=== PATIENT | male | born 1975 | race American Indian/Alaskan Native ===

== ENCOUNTER 2020-06-02 09:37 | Emergency (ER) | payer SELFPAY ==
[2020-06-02 09:43] VITALS: BP 157/101
[2020-06-02 11:07] LABS: Basophils % (Auto) 1.1 % (0.0-1.8); Eosinophils # (Auto) 0.2 K/mm3 (0.0-0.4); Eosinophils % (Auto) 3.5 % (0.0-4.3); Hemoglobin 14.9 gm/dl (11.8-15.2); Lymphocytes # (Auto) 2.5 K/mm3 (1.2-5.4); Lymphocytes % (Auto) 34.8 % (13.4-35.0); Mean Corpuscular HGB Conc 34 % (32-34); Mean Corpuscular Volume 87 fl (84-94); Monocytes # (Auto) 0.6 K/mm3 (0.0-0.8); Monocytes % (Auto) 7.8 % (0.0-7.3); Platelet Count 203 K/mm3 (140-440); Red Blood Count 5.03 M/mm3 (3.65-5.03); Red Cell Distribution Width 13.3 % (13.2-15.2)
[2020-06-02 11:18] LABS: Basophils # (Auto) 0.1 K/mm3 (0.0-0.1)
[2020-06-02 11:34] LABS: Alanine Aminotransferase 45 units/L (7-56); BUN/Creatinine Ratio 10; Blood Urea Nitrogen 10 mg/dL (9-20); Calcium 9.4 mg/dL (8.4-10.2); Hemolysis Index 7
--- NOTE | 2020-06-02 15:04 | Emergency Department Report ---
ED Abdominal Pain HPI - General Chief Complaint: Abdominal Pain Stated Complaint: BACK AND ABD PAIN Time Seen by Provider: 06/02/20 13:39 Source: patient Mode of arrival: Ambulatory Limitations: No Limitations - History of Present Illness Initial Comments: 44-year-old [place] male resents emerged department complaining of a few day history of left flank pain associated with increased urinary urgency and burning sensation radiating from the left flank down to the suprapubic region. Reports having some scant hematuria as well reports no penile discharge. No diarrhea no constipation no nausea or vomiting. MD Complaint: abdominal pain, flank pain -: Gradual Location: L flank Radiation: suprapubic, L flank Severity: mild Quality: burning Consistency: constant Improves With: nothing Worsens With: nothing Associated Symptoms: dysuria, hematuria. denies: nausea, vomiting, constipation, hematemesis, hematochezia, anorexia, syncope - Related Data Home Medications Medication Instructions Recorded Confirmed Last Taken Lisinopril [Zestril] 40 mg PO DAILY 01/31/14 01/31/14 01/30/14 19:00 Previous Rx's Medication Instructions Recorded Last Taken Type HYDROcodone/APAP 7.5-325 [[place] 1 each PO Q6HR PRN #14 tablet 04/01/14 Unknown Rx 7.5/325 mg] Ondansetron [Zofran Odt] 4 mg PO Q4H PRN #10 tab.rapdis 04/01/14 Unknown Rx cephALEXin [Keflex] 500 mg PO Q6H #20 capsule 04/01/14 Unknown Rx HYDROcodone/ACETAMINOPHEN [[place] 1 each PO Q4H PRN #20 tablet 04/03/14 Unknown Rx 5/325 Tablet] Oxycodone HCl/Acetaminophen 1 each PO Q6HR PRN #20 tablet 04/12/14 Unknown Rx [Percocet 10-325 mg] levoFLOXacin [Levaquin] 750 mg PO QDAY #10 tablet 04/12/14 Unknown Rx 0.9 % Sodium Chloride [Normal 10 ml IJ BID #250 disp.syrin 04/16/14 Unknown Rx Saline Flush] Insulin Glargine,Hum.rec.anlog 100 unit SQ Q12H PRN #3 ml 03/12/20 Unknown Rx [Basaglar Kwikpen U-100] Sulfamethoxazole/Trimethoprim 1 each PO BID #20 tablet 03/12/20 Unknown Rx [Bactrim DS TAB] lisinopriL [Zestril TAB] 40 mg PO QDAY #30 tablet 03/12/20 Unknown Rx metFORMIN [Glucophage] 1,000 mg PO Q12H #60 03/12/20 Unknown Rx Phenazopyridine [Pyridium] 200 mg PO TID #9 tab 06/02/20 Unknown Rx Sulfamethoxazole/Trimethoprim 1 each PO BID #20 tablet 06/02/20 Unknown Rx [Bactrim DS TAB] Allergies Allergy/AdvReac Type Severity Reaction Status Date / Time amoxicillin [Amoxicillin] Allergy Hives Verified 01/31/14 05:13 ED Review of Systems ROS: Stated complaint: BACK AND ABD PAIN Other details as noted in HPI Comment: All other systems reviewed and negative ED Past Medical Hx - Past Medical History Previous Medical History?: Yes Hx Hypertension: Yes Hx Heart Attack/AMI: No Hx Congestive Heart Failure: No Hx Diabetes: Yes Hx Deep Vein Thrombosis: No Hx Pulmonary Embolism: No Hx GERD: Yes Hx Liver Disease: No Hx Renal Disease: No Hx Sickle Cell Disease: No Hx Arthritis: No Hx Headaches / Migraines: No Hx Seizures: No Hx Kidney Stones: No Hx Asthma: No Hx COPD: No Hx Tuberculosis: No Hx Dementia: No Hx HIV: No Additional medical history: hiatal hernia - Surgical History Past Surgical History?: Yes Hx Coronary Stent: No Hx Open Heart Surgery: No Hx Pacemaker: No Hx Internal Defibrillator: No Hx Cholecystectomy: Yes (04/02/2014) Hx Appendectomy: No Hx Breast Surgery: (N/A) - Social History Smoking Status: Never Smoker Substance Use Type: None - Medications Home Medications: Home Medications Medication Instructions Recorded Confirmed Last Taken Type Lisinopril [Zestril] 40 mg PO DAILY 01/31/14 01/31/14 01/30/14 19:00 History HYDROcodone/APAP 7.5-325 [[place] 1 each PO Q6HR PRN #14 tablet 04/01/14 Unknown Rx 7.5/325 mg] Ondansetron [Zofran Odt] 4 mg PO Q4H PRN #10 tab.rapdis 04/01/14 Unknown Rx cephALEXin [Keflex] 500 mg PO Q6H #20 capsule 04/01/14 Unknown Rx HYDROcodone/ACETAMINOPHEN [[place] 1 each PO Q4H PRN #20 tablet 04/03/14 Unknown Rx 5/325 Tablet] Oxycodone HCl/Acetaminophen 1 each PO Q6HR PRN #20 tablet 04/12/14 Unknown Rx [Percocet 10-325 mg] levoFLOXacin [Levaquin] 750 mg PO QDAY #10 tablet 04/12/14 Unknown Rx 0.9 % Sodium Chloride [Normal 10 ml IJ BID #250 disp.syrin 04/16/14 Unknown Rx Saline Flush] Insulin Glargine,Hum.rec.anlog 100 unit SQ Q12H PRN #3 ml 03/12/20 Unknown Rx [Basaglar Kwikpen U-100] Sulfamethoxazole/Trimethoprim 1 each PO BID #20 tablet 03/12/20 Unknown Rx [Bactrim DS TAB] lisinopriL [Zestril TAB] 40 mg PO QDAY #30 tablet 03/12/20 Unknown Rx metFORMIN [Glucophage] 1,000 mg PO Q12H #60 03/12/20 Unknown Rx Phenazopyridine [Pyridium] 200 mg PO TID #9 tab 06/02/20 Unknown Rx Sulfamethoxazole/Trimethoprim 1 each PO BID #20 tablet 06/02/20 Unknown Rx [Bactrim DS TAB] ED Physical Exam - General Limitations: No Limitations General appearance: alert, in no apparent distress - Head Head exam: Present: atraumatic, normocephalic - Eye Eye exam: Present: normal appearance, PERRL, EOMI Pupils: Present: normal accommodation - ENT ENT exam: Present: normal exam, mucous membranes moist - Neck Neck exam: Present: normal inspection, full ROM. Absent: tenderness, meningismus, lymphadenopathy - Respiratory Respiratory exam: Present: normal lung sounds bilaterally. Absent: respiratory distress, wheezes, rales, chest wall tenderness, accessory muscle use, decreased breath sounds - Cardiovascular Cardiovascular Exam: Present: regular rate, normal rhythm. Absent: systolic murmur, diastolic murmur, rubs, gallop - GI/Abdominal GI/Abdominal exam: Present: soft, normal bowel sounds. Absent: distended, tenderness, hyperactive bowel sounds, hypoactive bowel sounds, organomegaly, mass - Rectal Rectal exam: Present: deferred - Extremities Exam Extremities exam: Present: normal inspection, full ROM, normal capillary refill - Back Exam Back exam: Present: normal inspection - Neurological Exam Neurological exam: Present: alert, oriented X3, CN II-XII intact - Psychiatric Psychiatric exam: Present: normal affect, normal mood - Skin Skin exam: Present: warm, dry, intact, normal color. Absent: rash ED Course Vital Signs 06/02/20 09:41 Temperature 98.5 F Pulse Rate 89 Respiratory 16 Rate Blood Pressure 157/101 O2 Sat by Pulse 98 Oximetry ED Medical Decision Making - Lab Data Result diagrams: 06/02/20 10:32 06/02/20 10:32 Lab Results 06/02/20 06/02/20 06/02/20 Range/Units 10:32 10:32 13:48 WBC 7.1 (4.5-11.0) K/mm3 RBC 5.03 (3.65-5.03) M/mm3 Hgb 14.9 (11.8-15.2) gm/dl Hct 44.0 (35.5-45.6) % MCV 87 (84-94) fl MCH 30 (28-32) pg MCHC 34 (32-34) % RDW 13.3 (13.2-15.2) % Plt Count 203 (140-440) K/mm3 Lymph % (Auto) 34.8 (13.4-35.0) % [place] % (Auto) 7.8 H (0.0-7.3) % Eos % (Auto) 3.5 (0.0-4.3) % Baso % (Auto) 1.1 (0.0-1.8) % Lymph # 2.5 (1.2-5.4) K/mm3 [place] # 0.6 (0.0-0.8) K/mm3 Eos # 0.2 (0.0-0.4) K/mm3 Baso # 0.1 (0.0-0.1) K/mm3 Seg Neutrophils % 52.8 (40.0-70.0) % Seg Neutrophils # 3.7 (1.8-7.7) K/mm3 Sodium 141 (137-145) mmol/L Potassium 4.6 (3.6-5.0) mmol/L Chloride 103.6 (98-107) mmol/L Carbon Dioxide 24 (22-30) mmol/L Anion Gap 18 mmol/L BUN 10 (9-20) mg/dL Creatinine 1.0 (0.8-1.3) mg/dL Estimated GFR > 60 ml/min BUN/Creatinine Ratio 10 % Glucose 194 H (75-100) mg/dL Calcium 9.4 (8.4-10.2) mg/dL Total Bilirubin 0.30 (0.1-1.2) mg/dL AST 37 (5-40) units/L ALT 45 (7-56) units/L Alkaline Phosphatase 68 (35-129) units/L Total Protein 7.1 (6.3-8.2) g/dL Albumin 4.0 (3.9-5) g/dL Albumin/Globulin Ratio 1.3 % Urine Color Yellow (Yellow) Urine Turbidity Clear (Clear) Urine pH 5.0 (5.0-7.0) Ur Specific [place] 1.024 (1.003-1.030) Urine Protein <15 mg/dl (Negative) mg/dL Urine Glucose (UA) 150 (Negative) mg/dL Urine Ketones Neg (Negative) mg/dL Urine Blood Neg (Negative) Urine Nitrite Neg (Negative) Urine Bilirubin Neg (Negative) Urine Urobilinogen < 2.0 (<2.0) mg/dL Ur Leukocyte Esterase Tr (Negative) Urine WBC (Auto) 3.0 (0.0-6.0) /HPF Urine RBC (Auto) 6.0 (0.0-6.0) /HPF U Epithel Cells (Auto) 3.0 (0-13.0) /HPF Urine Mucus Few /HPF - Medical Decision Making This patient presents to the emergency department with symptoms consistent with acute urinary tract infection. No systemic symptoms. Not septic. She is well- appearing. Moderate suspicion for acute pyelonephritis given the lack of fever, CVA tenderness, or systemic features. Low suspicion for for kidney stone or infected stone. Not in age range for and her history and and presentation are complicated. No no indications for imaging at this time. This patient presents with abdominal pain of unclear etiology. This patient presents with abdominal pain of unclear etiology. Their evaluation has not identified a emergent etiology for the abdominal pain. Specifically, given the very benign exam, normal laboratory studies, and lack of significant risk factors, I have a very low suspicion for appendicitis, ischemic bowel, bowel perforation, or any other life threatening disease. I have discussed with the patient the level of uncertainty with undifferentiated abdominal pain and clearly explained the need to follow-up as noted on the discharge instructions, or return to the Emergency Department immediately if the pain worsens, develops fever, persistent and u ncontrollable vomiting, or for any new symptoms or concerns. I discussed with the patient that this presentation today for abdominal pain could represent a significant risk for an acute abdominal process. Although the tests in the ED were essentially normal, there is still a possibility of a process such as appendicitis, diverticulitis, cholecystitis, ulcer, early bowel obstruction, mesenteric ischemia, kidney stone, or even kidney infection which could subsequently cause disability or . The patient understands that they must return within 24 hours for a recheck or see their physician within 24 hours for re-exam due to the possibility of significant surgical or medical process. Critical care attestation.: If time is entered above; I have spent that time in minutes in the direct care of this critically ill patient, excluding procedure time. ED Disposition Clinical Impression: UTI (urinary tract infection) Disposition: DC-01 TO HOME OR SELFCARE Is pt being admited?: No Does the pt Need Aspirin: No Condition: Stable Instructions: Urinary Tract Infection in Men (ED), Dysuria (ED), Phe nazopyridine (By mouth), Acute Pyelonephritis (ED) Prescriptions: Sulfamethoxazole/Trimethoprim [Bactrim DS TAB] 1 each PO BID #20 tablet Phenazopyridine [Pyridium] 200 mg PO TID #9 tab Referrals: PRIMARY CAREMD [Primary Care Provider] - 3-5 Days NARINDER LYON MD [Staff Physician] - 3-5 Days
[2020-06-02 15:19] LABS: Bilirubin,Urine NEG (Negative); Blood,Urine NEG (Negative); Color,Urine Yellow (Yellow); Mucus,Urine FEW /HPF; Protein,Urine <15 mg/dL mg/dL (Negative); Urobilinogen,Urine < 2.0 mg/dL (<2.0)
== END 2020-06-02 15:44 | disposition home or self-care (01) ==
LOC: ED 09:37
DX: N39.0 Urinary tract infection, site not specified (principal); I10 Essential (primary) hypertension; E11.9 Type 2 diabetes mellitus without complications; K21.9 Gastro-esophageal reflux disease without esophagitis; Z88.0 Allergy status to penicillin; Z79.899 Other long term (current) drug therapy; Z90.49 Acquired absence of other specified parts of digestive tract
CPT/HCPCS: 36415; 80053; 81001; 85025; 99283

== ENCOUNTER 2021-12-05 11:23 | Emergency (ER) | payer OTHER ==
[2021-12-05] MEDS ORDERED: MORPHINE 4 MG/1 ML INJ IV ONE (12:22)
[2021-12-05] MEDS ORDERED: SODIUM CHLORIDE 0.9% 1000 ML 1,000 ML IV ONE (12:22)
[2021-12-05] MEDS ORDERED: ONDANSETRON 4 MG/2 ML INJ IV ONE (12:22)
--- NOTE | 2021-12-05 12:24 | Event Note ---
ED Screening Note Date of service: 12/05/21 Time: 12:23 ED Screening Note: Patient presents to the ER today with complaints of severe left lower quadrant pain. Onset last . Reports associated vomiting. Last bowel movement was 2 days ago. Reports decreased appetite. Patient admits that he has been to the ER 4 times in the past 3 days for similar symptoms. He has been evaluated with labs and CT scan but he was told that they can find anything. He was given referral to GI but he states that his insurance only recently got and stated today. Abdominal surgeries significant only for cholecystectomy. Past medical history significant for hypertension, hyperlipidemia, diabetes, GERD and vertigo. This initial assessment/diagnostic orders/clinical plan/treatment(s) is/are subject to change based on patients health status, clinical progression and re- assessment by fellow clinical providers in the ED. Further treatment and workup at subsequent clinical providers discretion. Patient/guardian urged not to elope from the ED as their condition may be serious if not clinically assessed and managed. Initial orders include: Abdominal pain order set
--- NOTE | 2021-12-05 12:54 | Emergency Department Report ---
ED Abdominal Pain HPI - General Chief Complaint: Abdominal Pain Stated Complaint: ABDOMINAL PAIN/VOMITING Time Seen by Provider: 12/05/21 12:26 Source: patient Mode of arrival: Ambulatory Limitations: No Limitations - History of Present Illness Initial Comments: Patient presents with generalized abdominal pain. This is been intermittent for over a month now. Sometimes it is left-sided. Sometimes it is right-sided. When he lies on his right side, the pain starts to hurt on the right side. Predominantly, the pain is left-sided. Pain seems to wax and wane. It does not radiate, but does migrate as previously noted. There is no trauma associated with this. He has had no fevers or chills. There is no dysuria or frequency. Has not had hematuria. Patient denies penile discharge. He has been seen here multiple times. Blood work and CTs have been obtained. Patient has not had any specific diagnosis. Regardless, he keeps having symptoms. He has not followed up with a primary care physician. - Related Data Previous Rx's Medication Instructions Recorded Last Taken Type Insulin Glargine,Hum.rec.anlog 100 unit SQ Q12H PRN #3 ml 03/12/20 Unknown Rx [Basaglar Kwikpen U-100] lisinopriL [Zestril TAB] 40 mg PO QDAY #30 tablet 03/12/20 Unknown Rx Dicyclomine [Bentyl] 20 mg PO QID PRN #30 tablet 12/05/21 Unknown Rx Metoclopramide [Reglan] 10 mg PO ACHS PRN #30 tablet 12/05/21 Unknown Rx Allergies Allergy/AdvReac Type Severity Reaction Status Date / Time amoxicillin [Amoxicillin] Allergy Hives Verified 12/05/21 15:49 ED Review of Systems ROS: Stated complaint: ABDOMINAL PAIN/VOMITING Other details as noted in HPI Comment: All other systems reviewed and negative Constitutional: denies: fever Eyes: denies: eye discharge ENT: denies: throat pain Respiratory: denies: cough Cardiovascular: denies: chest pain Endocrine: denies: unexplained weight loss Gastrointestinal: as per HPI Genitourinary: denies: dysuria Musculoskeletal: denies: back pain Skin: denies: rash Neurological: denies: headache Hematological/Lymphatic: denies: easy bruising ED Past Medical Hx - Past Medical History Hx Hypertension: Yes Hx Heart Attack/AMI: No Hx Congestive Heart Failure: No Hx Diabetes: Yes Hx Deep Vein Thrombosis: No Hx Pulmonary Embolism: No Hx GERD: Yes Hx Liver Disease: No Hx Renal Disease: No Hx Sickle Cell Disease: No Hx Arthritis: No Hx Headaches / Migraines: No Hx Seizures: No Hx Kidney Stones: No Hx Asthma: No Hx COPD: No Hx Tuberculosis: No Hx Dementia: No Hx HIV: No Additional medical history: hiatal hernia - Surgical History Hx Coronary Stent: No Hx Open Heart Surgery: No Hx Pacemaker: No Hx Internal Defibrillator: No Hx Cholecystectomy: Yes (04/02/2014) Hx Appendectomy: No Hx Breast Surgery: (N/A) - Family History Family history: hypertension - Social History Smoking Status: Never Smoker Substance Use Type: None - Medications Home Medications: Home Medications Medication Instructions Recorded Confirmed Last Taken Type Insulin Glargine,Hum.rec.anlog 100 unit SQ Q12H PRN #3 ml 03/12/20 Unknown Rx [Basaglar Kwikpen U-100] lisinopriL [Zestril TAB] 40 mg PO QDAY #30 tablet 03/12/20 Unknown Rx Dicyclomine [Bentyl] 20 mg PO QID PRN #30 tablet 12/05/21 Unknown Rx Metoclopramide [Reglan] 10 mg PO ACHS PRN #30 tablet 12/05/21 Unknown Rx ED Physical Exam - General Limitations: No Limitations, Other (Pulse ox noted and normal) General appearance: alert, in distress (Moderate pain), obese - Head Head exam: Present: atraumatic, normocephalic - Eye Eye exam: Present: normal appearance, PERRL, EOMI. Absent: scleral icterus - ENT ENT exam: Present: normal orophraynx, normal external ear exam - Neck Neck exam: Present: normal inspection. Absent: meningismus - Respiratory Respiratory exam: Present: normal lung sounds bilaterally. Absent: respiratory distress - Cardiovascular Cardiovascular Exam: Present: normal rhythm, tachycardia - GI/Abdominal GI/Abdominal exam: Present: soft, tenderness (Left lower quadrant). Absent: distended, guarding, rebound, pulsatile mass - Extremities Exam Extremities exam: Present: normal capillary refill - Back Exam Back exam: Absent: CVA tenderness (R), CVA tenderness (L) - Neurological Exam Neurological exam: Present: alert, oriented X3, CN II-XII intact. Absent: motor sensory deficit - Psychiatric Psychiatric exam: Present: normal affect, normal mood - Skin Skin exam: Present: warm, dry ED Course Vital Signs 12/05/21 12/05/21 11:31 11:33 Temperature 98.2 F Pulse Rate 118 H Respiratory 16 16 Rate Blood Pressure 153/107 [Left] O2 Sat by Pulse 95 98 Oximetry - Reevaluation(s) Reevaluation #1: 12/05/21 12:54 Patient had been seen by the MAN[facility] with a work-up initiated. I have reviewed old records and labs. Reevaluation #2: 12/05/21 14:[address] is pending. Reevaluation #3: 12/05/21 15:55 CT noted. ED Medical Decision Making - Lab Data Result diagrams: 12/05/21 12:36 12/05/21 12:36 Critical Care Time: No Critical care attestation.: If time is entered above; I have spent that time in minutes in the direct care of this critically ill patient, excluding procedure time. ED Disposition Clinical Impression: Left lower quadrant pain Disposition: HOME / SELF CARE / HOMELESS Is pt being admited?: No Condition: Stable Instructions: Abdominal Pain, Adult, Pain Without a Known Cause Additional Instructions: Have a bland diet. Drink plenty water. Return for problems. Follow-up with the referral physicians as directed. Prescriptions: Dicyclomine [Bentyl] 20 mg PO QID PRN #30 tablet PRN Reason: abd pain Metoclopramide [Reglan] 10 mg PO ACHS PRN #30 tablet PRN Reason: Nausea Referrals: PRIMARY MD HERNANDEZ [Primary Care Provider] - 3-5 Days ONUR LOCO MD [Staff Physician] - 3-5 Days RJ HOANG MD [Staff Physician] - 3-5 Days
[2021-12-05 13:25] LABS: Basophils # (Auto) 0.1 K/mm3 (0.0-0.1); Basophils % (Auto) 0.8 % (0.0-1.8); Eosinophils % (Auto) 0.4 % (0.0-4.3); Hematocrit 51.7 % (35.5-45.6); Hemoglobin 16.8 gm/dl (11.8-15.2); Lymphocytes # (Auto) 3.3 K/mm3 (1.2-5.4); Lymphocytes % (Auto) 28.9 % (13.4-35.0); Mean Corpuscular HGB Conc 33 % (32-34); Mean Corpuscular Volume 88 fl (84-94); Monocytes # (Auto) 0.8 K/mm3 (0.0-0.8); Monocytes % (Auto) 6.9 % (0.0-7.3); Platelet Count 199 K/mm3 (140-440); Red Blood Count 5.85 M/mm3 (3.65-5.03); Red Cell Distribution Width 12.8 % (13.2-15.2)
[2021-12-05 13:27] LABS: Alanine Aminotransferase 23 units/L (7-56); Albumin 4.3 g/dL (3.9-5); BUN/Creatinine Ratio 17; Blood Urea Nitrogen 20 mg/dL (9-20); Calcium 9.3 mg/dL (8.4-10.2); Hemolysis Index 13
--- NOTE | 2021-12-05 15:11 | Cat Scan Report ---
CT ABDOMEN AND PELVIS WITH CONTRAST INDICATION / CLINICAL INFORMATION: Left lower quadrant pain. TECHNIQUE: Axial CT images were obtained through the abdomen and pelvis after 100 cc Omnipaque [address] scans at this location are performed using CT dose reduction for ALARA by means of automated exposure control. COMPARISON: None available. FINDINGS: LOWER CHEST: No significant abnormality. LIVER: There is generalized steatosis without other significant abnormalities. GALLBLADDER: Surgically absent. BILE DUCTS: No significant abnormality. PANCREAS: No significant abnormality. SPLEEN: No significant abnormality. ADRENALS: No significant abnormality. RIGHT KIDNEY/URETER: No significant abnormality. LEFT KIDNEY/URETER: No significant abnormality. STOMACH/SMALL BOWEL: No significant abnormality. COLON: There is generalized noninflamed diverticulosis. No other significant abnormality. APPENDIX: No significant abnormality. PERITONEUM: No free fluid. No free air. No fluid collection. LYMPH NODES: No significant adenopathy. VASCULATURE: No significant abnormality. URINARY BLADDER: No significant abnormality. REPRODUCTIVE ORGANS: No significant abnormality. ADDITIONAL FINDINGS: None. BONES: No acute findings. There are mild degenerative changes of the spine. IMPRESSION: 1. No acute findings to explain the patient's left lower quadrant pain. 2. Additional findings as above. Signer Name: Ronnell Clark MD Signed: 12/05/2021 3:07 PM Workstation Name: [id number]
[2021-12-05 16:31] VITALS: BP 146/91
--- NOTE | 2021-12-07 13:10 | Electrocardiograph Report ---
[facility] Test Date: 2021-12-05 Test Time: 11:32:27 Pat Name: NAHOMI SINGH Department: Room: Gender: Industrial Technician: JOHN : 1975 Requested By: RJ MCBRIDE Order Number: [id number] Reading MD: Sintia May Measurements Intervals [place] Rate: 108 P: 55 OR: 144 QRS: 40 QRSD: 92 T: 26 QT: 353 QTc: 473 Interpretive Statements Sinus tachycardia No previous ECG available for comparison Electronically Signed On 12-07-2021 13:09:56 EST by Sintia May
== END 2021-12-05 16:31 | disposition home or self-care (01) ==
LOC: ED 11:23
DX: R10.32 Left lower quadrant pain (principal); I10 Essential (primary) hypertension; E11.9 Type 2 diabetes mellitus without complications; K21.9 Gastro-esophageal reflux disease without esophagitis; Z90.49 Acquired absence of other specified parts of digestive tract
CPT/HCPCS: 36415; 74177; 80053; 83690; 85025; 93005; 93010; 96361; 96374; 96375; 99284; J2270; J2405; J7030; Q9967; Q0162

== ENCOUNTER 2022-04-25 17:20 | Emergency (ER) | payer OTHER ==
[2022-04-25] MEDS ORDERED: ASPIRIN 81 MG TAB CHEW PO ONE (19:14)
[2022-04-25] MEDS ORDERED: SODIUM CHLORIDE 0.9% 1000 ML 1,000 ML IV ONE (19:14)
[2022-04-25] MEDS ORDERED: MORPHINE 4 MG/1 ML INJ IV ONE (19:15)
[2022-04-25] MEDS ORDERED: ONDANSETRON 4 MG/2 ML INJ IV ONE (19:15)
[2022-04-25 19:42] LABS: Basophils # (Auto) 0.1 K/mm3 (0.0-0.1); Basophils % (Auto) 0.6 % (0.0-1.8); Eosinophils % (Auto) 0.3 % (0.0-4.3); Hematocrit 49.7 % (35.5-45.6); Hemoglobin 16.4 gm/dl (11.8-15.2); Lymphocytes # (Auto) 3.1 K/mm3 (1.2-5.4); Lymphocytes % (Auto) 27.4 % (13.4-35.0); Mean Corpuscular HGB Conc 33 % (32-34); Mean Corpuscular Volume 88 fl (84-94); Monocytes # (Auto) 0.6 K/mm3 (0.0-0.8); Monocytes % (Auto) 5.7 % (0.0-7.3); Platelet Count 210 K/mm3 (140-440); Red Blood Count 5.63 M/mm3 (3.65-5.03); Red Cell Distribution Width 13.2 % (13.2-15.2)
[2022-04-25 20:03] LABS: Alanine Aminotransferase 27 units/L (7-56); Albumin 4.4 g/dL (3.9-5); BUN/Creatinine Ratio 10; Blood Urea Nitrogen 10 mg/dL (9-20); Calcium 9.8 mg/dL (8.4-10.2); Hemolysis Index 19
--- NOTE | 2022-04-25 20:24 | XRay Report ---
CHEST 1 VIEW 04/25/2022 7:16 PM INDICATION / CLINICAL INFORMATION: Chest Pain. COMPARISON: 04/14/2014 FINDINGS: SUPPORT DEVICES: None. HEART / MEDIASTINUM: No significant abnormality. LUNGS / PLEURA: There is minimal parenchymal opacity in the lung bases which could represent atelecta sis or evolving pneumonia. No pneumothorax. The upper lung zones are clear. ADDITIONAL FINDINGS: No significant additional findings. IMPRESSION: 1. There is some minimal parenchymal opacity in the lung bases which could represent atelectasis or e volving pneumonia. Signer Name: Chauncey Fairbanks MD Signed: 04/25/2022 8:19 PM Workstation Name: [id number]
[2022-04-25] MEDS ORDERED: INSULIN REGULAR, HUMAN 100 UNITS/1 ML IV ONE ×2 (20:41→21:07)
--- NOTE | 2022-04-25 20:49 | Emergency Department Report ---
<FEDERICOLUL GAMBINO - Last Filed: 04/26/22 04:51> ED Chest Pain HPI - General Chief Complaint: Chest Pain Stated Complaint: CHEST PAIN Time Seen by Provider: 04/25/22 19:07 - Related Data Previous Rx's Medication Instructions Recorded Last Taken Type Insulin Glargine,Hum.rec.anlog 100 unit SQ Q12H PRN #3 ml 03/12/20 Unknown Rx [Basaglar Kwikpen U-100] lisinopriL [Zestril TAB] 40 mg PO QDAY #30 tablet 03/12/20 Unknown Rx Dicyclomine [Bentyl] 20 mg PO QID PRN #30 tablet 12/05/21 Unknown Rx Metoclopramide [Reglan] 10 mg PO ACHS PRN #30 tablet 12/05/21 Unknown Rx Metoclopramide [Reglan] 10 mg PO QID PRN #30 tablet 04/26/22 Unknown Rx Promethazine HCl [Phenergan SUPPOS] 25 mg RC Q6HR PRN #15 supp 04/26/22 Unknown Rx Allergies Allergy/AdvReac Type Severity Reaction Status Date / Time amoxicillin [Amoxicillin] Allergy Hives Verified 04/25/22 17:49 Heart Score - HEART Score History: Slightly suspicious EKG: Non-specific Age: 45-65 Risk factors: 1-2 risk factors Troponin: < normal limit HEART Score: 3 - EKG Read Time Time EKG Completed: 22:00 EKG Read Time: 22:00 - Critical Actions Critical Actions: 0-3 pts:0.9-1.7%risk of adverse cardiac event.Candidate for discharge ED Past Medical Hx - Medications Home Medications: Home Medications Medication Instructions Recorded Confirmed Last Taken Type Insulin Glargine,Hum.rec.anlog 100 unit SQ Q12H PRN #3 ml 03/12/20 Unknown Rx [Basaglar Kwikpen U-100] lisinopriL [Zestril TAB] 40 mg PO QDAY #30 tablet 03/12/20 Unknown Rx Dicyclomine [Bentyl] 20 mg PO QID PRN #30 tablet 12/05/21 Unknown Rx Metoclopramide [Reglan] 10 mg PO ACHS PRN #30 tablet 12/05/21 Unknown Rx Metoclopramide [Reglan] 10 mg PO QID PRN #30 tablet 04/26/22 Unknown Rx Promethazine HCl [Phenergan SUPPOS] 25 mg RC Q6HR PRN #15 supp 04/26/22 Unknown Rx ED Course - Reevaluation(s) Reevaluation #1: 04/25/22 22:41 EKG unchanged from prior. CTA chest negative for acute findings. CT abdomen pelvis negative for acute findings. Heart rate 105 to 110 bpm. No active vomiting. Suspect gastroparesis. Awaiting repeat laboratory studies. 04/26/22 00:18 No active vomiting. Glucose is improved. Heart rate 100 to 102 bpm. Dehydration appears to be improved. Resting comfortably in stretcher, and in no acute distress. Troponin is negative x2. This is most likely diabetic gastroparesis. Discharged with as needed Reglan, Phenergan, may take [id number]-[id number] Pepcid, Protonix, or Tylenol. Should follow-up with outpatient primary care for chronic diabetes. GÓMEZ score - Gómez Score Age > 65: (0) No Aspirin use within the Past 7 Days: (0) No 3 or more CAD Risk Factors: (0) No 2 or more Angina events in past 24 hrs: (0) No Known CAD with more than 50% Stenosis: (0) No Elevated Cardiac Markers: (0) No ST Deviation Greater than 0.5mm: (0) No GÓMEZ Score: 0 ED Medical Decision Making - Lab Data Result diagrams: 04/25/22 19:25 04/25/22 23:00 - EKG Data -: EKG Interpreted by [place] EKG shows normal: sinus rhythm Rate: normal - EKG Data Interpretation: unchanged when compared t (Unchanged from prior EKG December 2021) 04/25/22 22:27 The EKG is interpreted at 20: 56 Sinus rhythm, rate 116 bpm. Normal axis, normal P wave axis, poor R wave progression, QT is 4 7 1 ms. This is not a STEMI. This is unchanged from prehospital EKG - Radiology Data Radiology results: pending, report reviewed, image reviewed CT ABDOMEN AND PELVIS WITH CONTRAST INDICATION / CLINICAL INFORMATION: Unspecified abdominal pain. TECHNIQUE: Axial CT images were obtained through the abdomen and pelvis after 100 cc Omnipaque [address] scans at this location are performed using CT dose reduction for ALARA by means of automated exposure control. COMPARISON: CT abdomen and pelvis with contrast from 12/05/2021. FINDINGS: LOWER CHEST: No significant abnormality. LIVER: Steatosis is again seen. No new significant abnormality. GALLBLADDER: Surgically absent. BILE DUCTS: No significant abnormality. PANCREAS: No significant abnormality. SPLEEN: No significant abnormality. ADRENALS: No significant abnormality. RIGHT KIDNEY/URETER: No significant abnormality. LEFT KIDNEY/URETER: No significant abnormality. STOMACH/SMALL BOWEL: No significant abnormality. COLON: There is mild noninflamed diverticulosis along the descending and transverse colon. No other significant abnormality. APPENDIX: No significant abnormality. PERITONEUM: No free fluid. No free air. No fluid collection. LYMPH NODES: No significant adenopathy. VASCULATURE: No significant abnormality. URINARY BLADDER: No significant abnormality. REPRODUCTIVE ORGANS: No significant abnormality. ADDITIONAL FINDINGS: None. BONES: No significant abnormality IMPRESSION: No acute findings to explain the patient's abdominal pain. Signer Name: Ronnell Clark MD Signed: 04/25/2022 8:59 PM Workstation Name: [id number] CHEST 1 VIEW 04/25/2022 7:16 PM INDICATION / CLINICAL INFORMATION: Chest Pain. COMPARISON: 04/14/2014 FINDINGS: SUPPORT DEVICES: None. HEART / MEDIASTINUM: No significant abnormality. LUNGS / PLEURA: There is minimal parenchymal opacity in the lung bases which could represent atelectasis or evolving pneumonia. No pneumothorax. The upper lung zones are clear. ADDITIONAL FINDINGS: No significant additional findings. IMPRESSION: 1. There is some minimal parenchymal opacity in the lung bases which could represent atelectasis or evolving pneumonia. Signer Name: Chauncey Fairbanks MD Signed: 04/25/2022 7:19 PM Workstation Name: [id number] CTA CHEST WITH CONTRAST INDICATION / CLINICAL INFORMATION: Chest pain. TECHNIQUE: Axial CT images were obtained through the chest after injection of 100 cc Omnipaque 350 IV contrast. 3 plane MIP and/or 3D reconstructions were produced. All CT scans at this location are performed using CT dose reduction for ALARA by means of automated exposure control. COMPARISON: One view of the chest performed today. FINDINGS: PULMONARY EMBOLUS: None. THORACIC AORTA: No significant abnormality. HEART: No significant abnormality. CORONARY ARTERY CALCIFICATION: Absent -- None. MEDIASTINUM / ASHLEY: No significant abnormality. PLEURA: No pleural effusion. No pneumothorax. LUNGS: The lungs are clear. No suspicious abnormality is seen to correlate with the findings of the prior chest radiograph. ADDITIONAL FINDINGS: None. UPPER ABDOMEN: No acute findings. SKELETAL STRUCTURES: No significant osseous abnormality. IMPRESSION: 1. No CT evidence for pulmonary embolism. 2. No acute findings. Signer Name: Ronnell Clark MD Signed: 04/25/2022 9:25 PM Workstation Name: [id number] ED Disposition Clinical Impression: Hyperglycemia, Acute abdominal pain, Nonspecific chest pain, Nausea and vomiting, Dehydration Disposition: HOME / SELF CARE / HOMELESS Is pt being admited?: No Does the pt Need Aspirin: No Condition: Good Instructions: Nonspecific Chest Pain, Adult, Hyperglycemia, Dehydration, Adult Additional Instructions: CT scan chest abdomen pelvis showed no acute or emergent findings. Laboratory studies today were remarkable for high blood glucose levels, and dehydration. Symptoms likely coming from uncontrolled blood glucose levels, leading to nausea vomiting dehydration. Recommend that patient consume a diabetic appropriate diet. Patient may reference the [place] [employer] website for recommendations on how to construct and consume a diabetic appropriate diet. Drink 4 to 6 cups of water per day, and avoid consumption of alcohol, tobacco, smoke products, Motrin, ibuprofen, Naprosyn, Aleve, heavy and spicy foods. Consume plenty of fiber, vegetables and green protein. May take [id number]-[id number] Tylenol, Pepcid, or Protonix as needed for physical pain. May take the Reglan medication, for nausea and vomiting, and use the Phenergan suppository as needed for intractable nausea and vomiting not relieved by Reglan medication. Recommend follow-up with a primary care doctor within the next week. Recommend follow-up with a line server for nonspecific chest pain in the next 5 days. Please return to the emergency room right away with new pain, worsened pain, migration of pain, projectile vomiting, change in mental status, confusion, inability tolerate liquid feeds, new, worsened or different symptoms not present on the initial emergency room evaluation Prescriptions: Promethazine HCl [Phenergan SUPPOS] 25 mg RC Q6HR PRN #15 supp PRN Reason: Nausea Metoclopramide [Reglan] 10 mg PO QID PRN #30 tablet PRN Reason: Nausea Referrals: NARINDER LYON MD [Primary Care Provider] - 3-5 Days [facility] [Provider Group] - 3-5 Days [facility] [Outside] - 3-5 Days Forms: Work/School Release Form(ED) <RUDY HOLDEN - Last Filed: 04/26/22 16:46> ED Chest Pain HPI - General Source: patient, EMS Mode of arrival: Stretcher Limitations: No Limitations - History of Present Illness Initial Comments: Patient is a 46-year-old male presenting to ED with complaint of chest discomfort beginning today. He describes it as a sharp sensation in his left chest. He also reports generalized abdominal pain for the past week. States he has been evaluated for this in the past however nothing significant was found. He denies any fever or chills. Severity scale (0 -10): 8 ED Review of Systems ROS: Stated complaint: CHEST PAIN Other details as noted in HPI Constitutional: denies: chills, fever Respiratory: denies: cough, shortness of breath, wheezing Cardiovascular: chest pain Gastrointestinal: abdominal pain, nausea, vomiting. denies: diarrhea Genitourinary: denies: urgency, dysuria Musculoskeletal: denies: back pain, joint swelling, arthralgia Skin: denies: rash, lesions Neurological: denies: headache, weakness, paresthesias Psychiatric: denies: anxiety, depression ED Past Medical Hx - Past Medical History Hx Hypertension: Yes Hx Heart Attack/AMI: No Hx Congestive Heart Failure: No Hx Diabetes: Yes Hx Deep Vein Thrombosis: No Hx Pulmonary Embolism: No Hx GERD: Yes Hx Liver Disease: No Hx Renal Disease: No Hx Sickle Cell Disease: No Hx Arthritis: No Hx Headaches / Migraines: No Hx Seizures: No Hx Kidney Stones: No Hx Asthma: No Hx COPD: No Hx Tuberculosis: No Hx Dementia: No Hx HIV: No Additional medical history: hiatal hernia - Surgical History Hx Coronary Stent: No Hx Open Heart Surgery: No Hx Pacemaker: No Hx Internal Defibrillator: No Hx Cholecystectomy: Yes (04/02/2014) Hx Appendectomy: No Hx Breast Surgery: (N/A) - Social History Smoking Status: Never Smoker Substance Use Type: None ED Physical Exam - General Limitations: No Limitations ED Course Vital Signs 04/25/22 04/25/22 04/25/22 17:48 18:12 18:13 Temperature 98.4 F 98.7 F Pulse Rate 126 H 121 H 120 H Respiratory 20 19 18 Rate Blood Pressure 134/99 Blood Pressure 123/70 [Left] O2 Sat by Pulse 98 100 100 Oximetry 04/25/22 04/25/22 04/25/22 18:15 18:31 18:45 Temperature Pulse Rate 120 H 117 H 126 H Respiratory 28 H 28 H 21 Rate Blood Pressure 134/99 145/103 145/103 Blood Pressure [Left] O2 Sat by Pulse 100 99 99 Oximetry 04/25/22 04/25/22 04/25/22 19:00 19:57 20:01 Temperature Pulse Rate 125 H 121 H 115 H Respiratory 22 19 19 Rate Blood Pressure 145/103 162/138 144/107 Blood Pressure [Left] O2 Sat by Pulse 100 100 99 Oximetry 04/25/22 04/25/22 04/25/22 20:15 20:31 20:45 Temperature Pulse Rate 104 H 110 H 112 H Respiratory 19 26 H 25 H Rate Blood Pressure 144/107 144/107 144/107 Blood Pressure [Left] O2 Sat by Pulse 92 95 95 Oximetry 04/25/22 04/25/22 04/25/22 21:01 21:15 21:22 Temperature Pulse Rate 114 H 114 H Respiratory 15 17 Rate Blood Pressure 144/107 144/107 Blood Pressure [Left] O2 Sat by Pulse 98 97 100 Oximetry 04/25/22 04/25/22 04/25/22 21:30 21:49 22:01 Temperature Pulse Rate 112 H 116 H 115 H Respiratory 23 19 25 H Rate Blood Pressure 144/107 144/107 144/107 Blood Pressure [Left] O2 Sat by Pulse 97 98 96 Oximetry 04/25/22 04/25/22 04/25/22 22:15 22:31 22:45 Temperature Pulse Rate 114 H 114 H 113 H Respiratory 25 H 23 19 Rate Blood Pressure 130/85 130/85 130/85 Blood Pressure [Left] O2 Sat by Pulse 94 93 96 Oximetry ED Medical Decision Making - Lab Data Result diagrams: 04/25/22 19:25 04/25/22 23:00 - Medical Decision Making Patient signed out at shift change to Dr. Talley out of for follow-up labs, imaging and disposition. Critical care attestation.: If time is entered above; I have spent that time in minutes in the direct care of this critically ill patient, excluding procedure time.
[2022-04-25] MEDS ORDERED: LACTATED RINGERS 2,000 ML IV ONE (21:05)
[2022-04-25] MEDS ORDERED: HYDROmorphone 0.5 MG/0.5 ML INJ IV ONE (21:07)
--- NOTE | 2022-04-25 22:04 | Cat Scan Report ---
CT ABDOMEN AND PELVIS WITH CONTRAST INDICATION / CLINICAL INFORMATION: Unspecified abdominal pain. TECHNIQUE: Axial CT images were obtained through the abdomen and pelvis after 100 cc Omnipaque [address] scans at this location are performed using CT dose reduction for ALARA by means of automated exposure control. COMPARISON: CT abdomen and pelvis with contrast from 12/05/2021. FINDINGS: LOWER CHEST: No significant abnormality. LIVER: Steatosis is again seen. No new significant abnormality. GALLBLADDER: Surgically absent. BILE DUCTS: No significant abnormality. PANCREAS: No significant abnormality. SPLEEN: No significant abnormality. ADRENALS: No significant abnormality. RIGHT KIDNEY/URETER: No significant abnormality. LEFT KIDNEY/URETER: No significant abnormality. STOMACH/SMALL BOWEL: No significant abnormality. COLON: There is mild noninflamed diverticulosis along the descending and transverse colon. No other s ignificant abnormality. APPENDIX: No significant abnormality. PERITONEUM: No free fluid. No free air. No fluid collection. LYMPH NODES: No significant adenopathy. VASCULATURE: No significant abnormality. URINARY BLADDER: No significant abnormality. REPRODUCTIVE ORGANS: No significant abnormality. ADDITIONAL FINDINGS: None. BONES: No significant abnormality IMPRESSION: No acute findings to explain the patient's abdominal pain. Signer Name: Ronnell Clark MD Signed: 04/25/2022 9:59 PM Workstation Name: [id number]
--- NOTE | 2022-04-25 22:30 | Cat Scan Report ---
CTA CHEST WITH CONTRAST INDICATION / CLINICAL INFORMATION: Chest pain. TECHNIQUE: Axial CT images were obtained through the chest after injection of 100 cc Omnipaque 350 IV contrast. 3 plane MIP and/or 3D reconstructions were produced. All CT scans at this location are per formed using CT dose reduction for ALARA by means of automated exposure control. COMPARISON: One view of the chest performed today. FINDINGS: PULMONARY EMBOLUS: None. THORACIC AORTA: No significant abnormality. HEART: No significant abnormality. CORONARY ARTERY CALCIFICATION: Absent -- None. MEDIASTINUM / ASHLEY: No significant abnormality. PLEURA: No pleural effusion. No pneumothorax. LUNGS: The lungs are clear. No suspicious abnormality is seen to correlate with the findings of the p rior chest radiograph. ADDITIONAL FINDINGS: None. UPPER ABDOMEN: No acute findings. SKELETAL STRUCTURES: No significant osseous abnormality. IMPRESSION: 1. No CT evidence for pulmonary embolism. 2. No acute findings. Signer Name: Ronnell Clark MD Signed: 04/25/2022 10:25 PM Workstation Name: [id number]
[2022-04-25 22:49] VITALS: BP 130/85
[2022-04-25 23:46] LABS: BUN/Creatinine Ratio 10; Blood Urea Nitrogen 10 mg/dL (9-20); Calcium 9.4 mg/dL (8.4-10.2); Hemolysis Index 3
--- NOTE | 2022-04-26 13:49 | Electrocardiograph Report ---
[facility] Test Date: 2022-04-25 Test Time: 20:56:09 Pat Name: NAHOMI SINGH Department: Room: Gender: M Product Grader: TR : 1975 Requested By: LUL LOPEZ Order Number: [id number] Reading MD: Sintia May Measurements Intervals [place] Rate: 116 P: 47 WV: 147 QRS: 16 QRSD: 89 T: 46 QT: 340 QTc: 471 Interpretive Statements Sinus tachycardia Probable anteroseptal infarct, old Compared to ECG 12/05/2021 11:32:27 No significant change Electronically Signed On 04-26-2022 13:49:08 EDT by Sintia May
== END 2022-04-26 01:39 | disposition home or self-care (01) ==
LOC: ED 17:20
DX: R07.9 Chest pain, unspecified (principal); E11.65 Type 2 diabetes mellitus with hyperglycemia; E86.0 Dehydration; R10.9 Unspecified abdominal pain; R11.2 Nausea with vomiting, unspecified; I10 Essential (primary) hypertension; K21.9 Gastro-esophageal reflux disease without esophagitis; Z98.890 Other specified postprocedural states; Z88.0 Allergy status to penicillin
CPT/HCPCS: 36415; 71045; 71275; 74177; 80048; 80053; 82550; 82805; 82962; 83690; 83735; 84484; 85025; 85379; 93005; 96361; 96374; 96375; 99285; J1170; J2270; J2405; J7030; J7120; Q9967; J1815